=== PATIENT | female | born 1945 | race Caucasian/White ===

== ENCOUNTER 2020-02-19 07:14 | Emergency (ER) | payer OTHER, BC ==
[~2020-02-19] VITALS: Ht 170.2 cm; Wt 63.5 kg
[2020-02-19] MEDS ORDERED: LIDODERM1 EACH TOP (07:24)
[2020-02-19] MEDS ORDERED: ULTRAM50 MG PO (07:25)
[2020-02-19] MEDS ORDERED: NORFLEX100 MG PO (07:25)
[2020-02-19] MEDS ORDERED: PREDNISONE 20 M20 M1 PO (07:40)
[2020-02-19] MEDS ORDERED: LOPRESSOR25 PO (07:57)
[2020-02-19 08:52] VITALS: BP 114/66
== END 2020-02-19 08:56 | disposition home or self-care (01) ==
LOC: ER 07:14
DX: M54.42 Lumbago with sciatica, left side (principal); Z88.2 Allergy status to sulfonamides; Z88.8 Allergy status to other drugs, medicaments and biological substances